=== PATIENT | female | born 1955 | race Two or more races ===

== ENCOUNTER 2016-10-12 06:43 | Inpatient (IN) | payer BC ==
[~2016-10-12] VITALS: Ht 172.7 cm; Wt 82.7 kg
[~2016-10-12 06:43] MED LIST: CYMBALTA20 MG PO; FENTANYL1 EAC1 TD; LOPRESSOR HC1 TABLE2 PO; PERCOCET 10/1 TABLET PO; PROZAC20 MG PO
[2016-10-12 07:41] VITALS: BP 132/71
[2016-10-12 15:47] VITALS: BP 134/62
[2016-10-12 19:35] VITALS: BP 119/71
[2016-10-12 23:27] VITALS: BP 127/85
[2016-10-13 03:38] VITALS: BP 162/77
[2016-10-13] MEDS ORDERED: TIZANIDINE HCL4 MG PO (07:26)
[2016-10-13] MEDS ORDERED: ENDOCET 5-3251 EACH PO (07:26)
[2016-10-13] MEDS ORDERED: LEVAQUIN500 MG PO (07:26)
[2016-10-13 07:27] VITALS: BP 132/67
== END 2016-10-13 13:30 | disposition home or self-care (01) | DRG 460 ==
LOC: 2SOUTH 06:43 → 3EAST 15:07
PROC: 01NB0ZZ Release Lumbar Nerve, Open Approach (ICD-10-PCS; principal; 2016-10-12)
PROC: 0SG00AJ Fusion of Lumbar Vertebral Joint with Interbody Fusion Device, Posterior Approach, Anterior Column, Open Approach (ICD-10-PCS; principal; 2016-10-12)
PROC: 0SG0071 Fusion of Lumbar Vertebral Joint with Autologous Tissue Substitute, Posterior Approach, Posterior Column, Open Approach (ICD-10-PCS; principal; 2016-10-12)
DX: M43.16 Spondylolisthesis, lumbar region (principal); M48.06 Spinal stenosis, lumbar region; M47.26 Other spondylosis with radiculopathy, lumbar region; M51.16 Intervertebral disc disorders with radiculopathy, lumbar region; I10 Essential (primary) hypertension; M79.7 Fibromyalgia; M41.9 Scoliosis, unspecified; Z87.891 Personal history of nicotine dependence; Z88.2 Allergy status to sulfonamides
CPT/HCPCS: 72020; 72100; 76000; 86900; 86901; J0131; J0690; J1100; J1170; J1580; J2405; J2710; J2930; J3010; J3370; J3480; S0020